=== PATIENT | female | born 1970 | race American Indian/Alaskan Native ===

== ENCOUNTER 2019-10-18 14:12 | Emergency (ER) | payer BC, OTHER ==
--- NOTE | 2019-10-18 15:36 | Emergency Department Report ---
ED Psych HPI - General Chief Complaint: Psych Stated Complaint: SUICIDE ATTEMPT Time Seen by Provider: 10/18/19 15:31 Source: patient Mode of arrival: Stretcher - Related Data Allergies Allergy/AdvReac Type Severity Reaction Status Date / Time No Known Allergies Allergy Unverified 10/18/19 14:41 ED Review of Systems ROS: Stated complaint: SUICIDE ATTEMPT Other details as noted in HPI Comment: All other systems reviewed and negative ED Past Medical Hx - Past Medical History Previous Medical History?: Yes Hx Hypertension: Yes Hx of Cancer: Yes (L breast CA - radiation and chemo 2005) Hx Psychiatric Treatment: Yes (BRYSON, PTSD, Depressive D/O) - Surgical History Additional Surgical History: Lumpectomy of L breast, Kidney stone - Social History Smoking Status: Former Smoker Substance Use Type: Alcohol ED Physical Exam - General Limitations: No Limitations General appearance: alert, in no apparent distress - Head Head exam: Present: atraumatic, normocephalic - Eye Eye exam: Present: normal appearance, PERRL, EOMI Pupils: Present: normal accommodation - ENT ENT exam: Present: normal exam, normal orophraynx, mucous membranes moist, TM's normal bilaterally - Neck Neck exam: Present: normal inspection, full ROM - Respiratory Respiratory exam: Present: normal lung sounds bilaterally. Absent: respiratory distress, wheezes, rales, rhonchi, accessory muscle use, decreased breath sounds - Cardiovascular Cardiovascular Exam: Present: regular rate, normal rhythm. Absent: systolic murmur, diastolic murmur, rubs, gallop - GI/Abdominal GI/Abdominal exam: Present: soft, normal bowel sounds. Absent: distended, tenderness, guarding, hyperactive bowel sounds, hypoactive bowel sounds - Extremities Exam Extremities exam: Present: normal inspection, normal capillary refill - Expanded Upper Extremity Exam Left Elbow exam: Present: laceration (linear laceration envolving the dermis 1.5 cm) Hand Wrist exam: Present: normal inspection, full ROM Vascular: Present: normal capillary refill - Back Exam Back exam: Present: normal inspection. Absent: CVA tenderness (R), CVA tenderness (L) - Neurological Exam Neurological exam: Present: alert, oriented X3 - Psychiatric Psychiatric exam: Present: normal affect, normal mood - Skin Skin exam: Present: warm, dry, intact, normal color. Absent: rash Critical care attestation.: If time is entered above; I have spent that time in minutes in the direct care of this critically ill patient, excluding procedure time. ED Disposition Condition: Stable
[2019-10-18] MEDS ORDERED: LORazepam 2 MG/ML VIAL IM PRN (15:42)
[2019-10-18] MEDS ORDERED: HALOPERIDOL LACTATE 5 MG/1 ML INJ IM PRN (15:42)
--- NOTE | 2019-10-18 15:42 | Event Note ---
Date of service: 10/18/19 Face to Face: The patient is a 49-year-old female, right-hand dominant, up-to-date with tetanus vaccination, presenting with self-inflicted linear laceration/wound to the volar medial aspect of her left distal upper extremity. Finger intrinsics are intact. There are no neurovascular deficits. Wound to be repaired by physician administrative assistant receptionist. Psychiatric consultation is requested. Screening laboratory studies reviewed and appreciated. Bacitracin to wound, otherwise, antibiotics not indicated. At this point in time, patient does not appear to have an immediate medical contraindication to psychiatric admission, evaluation, consultation and placement. Vital Signs 10/18/19 15:43 Temperature 98.2 F Pulse Rate 116 H Blood Pressure 113/75 [Left] O2 Sat by Pulse 96 Oximetry Lab Results 10/18/19 10/18/19 10/18/19 Range/Units 15:43 15:44 15:44 WBC 10.6 (4.5-11.0) K/mm3 RBC 4.45 (3.65-5.03) M/mm3 Hgb 13.4 (10.1-14.3) gm/dl Hct 40.3 (30.3-42.9) % MCV 91 (79-97) fl MCH 30 (28-32) pg MCHC 33 (30-34) % RDW 14.1 (13.2-15.2) % Plt Count 336 (140-440) K/mm3 Lymph % (Auto) 16.9 (13.4-35.0) % [place] % (Auto) 6.7 (0.0-7.3) % Eos % (Auto) 1.8 (0.0-4.3) % Baso % (Auto) 1.0 (0.0-1.8) % Lymph # 1.8 (1.2-5.4) K/mm3 [place] # 0.7 (0.0-0.8) K/mm3 Eos # 0.2 (0.0-0.4) K/mm3 Baso # 0.1 (0.0-0.1) K/mm3 Seg Neutrophils % 73.6 H (40.0-70.0) % Seg Neutrophils # 7.8 H (1.8-7.7) K/mm3 Sodium 136 L (137-145) mmol/L Potassium 4.2 (3.6-5.0) mmol/L Chloride 103.1 (98-107) mmol/L Carbon Dioxide 18 L (22-30) mmol/L Anion Gap 19 mmol/L BUN 12 (7-17) mg/dL Creatinine 1.0 (0.7-1.2) mg/dL Estimated GFR > 60 ml/min BUN/Creatinine Ratio 12 % Glucose 113 H (65-100) mg/dL Calcium 10.0 (8.4-10.2) mg/dL Total Bilirubin 0.20 (0.1-1.2) mg/dL AST 24 (5-40) units/L ALT 19 (7-56) units/L Alkaline Phosphatase 77 (35-129) units/L Total Creatine Kinase (30-135) units/L Total Protein 7.8 (6.3-8.2) g/dL Albumin 4.0 (3.9-5) g/dL Albumin/Globulin Ratio 1.1 % HCG, Quant (0-4) mIU/mL Salicylates < 0.3 L (2.8-20.0) mg/dL Acetaminophen (10.0-30.0) ug/mL Plasma/Serum Alcohol (0-0.07) % 10/18/19 10/18/19 10/18/19 Range/Units 15:44 15:44 15:44 WBC (4.5-11.0) K/mm3 RBC (3.65-5.03) M/mm3 Hgb (10.1-14.3) gm/dl Hct (30.3-42.9) % MCV (79-97) fl MCH (28-32) pg MCHC (30-34) % RDW (13.2-15.2) % Plt Count (140-440) K/mm3 Lymph % (Auto) (13.4-35.0) % [place] % (Auto) (0.0-7.3) % Eos % (Auto) (0.0-4.3) % Baso % (Auto) (0.0-1.8) % Lymph # (1.2-5.4) K/mm3 [place] # (0.0-0.8) K/mm3 Eos # (0.0-0.4) K/mm3 Baso # (0.0-0.1) K/mm3 Seg Neutrophils % (40.0-70.0) % Seg Neutrophils # (1.8-7.7) K/mm3 Sodium (137-145) mmol/L Potassium (3.6-5.0) mmol/L Chloride (98-107) mmol/L Carbon Dioxide (22-30) mmol/L Anion Gap mmol/L BUN (7-17) mg/dL Creatinine (0.7-1.2) mg/dL Estimated GFR ml/min BUN/Creatinine Ratio % Glucose (65-100) mg/dL Calcium (8.4-10.2) mg/dL Total Bilirubin (0.1-1.2) mg/dL AST (5-40) units/L ALT (7-56) units/L Alkaline Phosphatase (35-129) units/L Total Creatine Kinase 117 (30-135) units/L Total Protein (6.3-8.2) g/dL Albumin (3.9-5) g/dL Albumin/Globulin Ratio % HCG, Quant (0-4) mIU/mL Salicylates (2.8-20.0) mg/dL Acetaminophen < 5.0 L (10.0-30.0) ug/mL Plasma/Serum Alcohol < 0.01 (0-0.07) % 10/18/19 Range/Units 15:44 WBC (4.5-11.0) K/mm3 RBC (3.65-5.03) M/mm3 Hgb (10.1-14.3) gm/dl Hct (30.3-42.9) % MCV (79-97) fl MCH (28-32) pg MCHC (30-34) % RDW (13.2-15.2) % Plt Count (140-440) K/mm3 Lymph % (Auto) (13.4-35.0) % [place] % (Auto) (0.0-7.3) % Eos % (Auto) (0.0-4.3) % Baso % (Auto) (0.0-1.8) % Lymph # (1.2-5.4) K/mm3 [place] # (0.0-0.8) K/mm3 Eos # (0.0-0.4) K/mm3 Baso # (0.0-0.1) K/mm3 Seg Neutrophils % (40.0-70.0) % Seg Neutrophils # (1.8-7.7) K/mm3 Sodium (137-145) mmol/L Potassium (3.6-5.0) mmol/L Chloride (98-107) mmol/L Carbon Dioxide (22-30) mmol/L Anion Gap mmol/L BUN (7-17) mg/dL Creatinine (0.7-1.2) mg/dL Estimated GFR ml/min BUN/Creatinine Ratio % Glucose (65-100) mg/dL Calcium (8.4-10.2) mg/dL Total Bilirubin (0.1-1.2) mg/dL AST (5-40) units/L ALT (7-56) units/L Alkaline Phosphatase (35-129) units/L Total Creatine Kinase (30-135) units/L Total Protein (6.3-8.2) g/dL Albumin (3.9-5) g/dL Albumin/Globulin Ratio % HCG, Quant < 2 (0-4) mIU/mL Salicylates (2.8-20.0) mg/dL Acetaminophen (10.0-30.0) ug/mL Plasma/Serum Alcohol (0-0.07) %
[2019-10-18] MEDS ORDERED: BACITRACIN ZINC OINT 28.4 GM TP SCH (16:00)
[2019-10-18 16:02] LABS: Basophils # (Auto) 0.1 K/mm3 (0.0-0.1); Eosinophils # (Auto) 0.2 K/mm3 (0.0-0.4); Eosinophils % (Auto) 1.8 % (0.0-4.3); Hematocrit 40.3 % (30.3-42.9); Hemoglobin 13.4 gm/dl (10.1-14.3); Lymphocytes # (Auto) 1.8 K/mm3 (1.2-5.4); Lymphocytes % (Auto) 16.9 % (13.4-35.0); Mean Corpuscular HGB Conc 33 % (30-34); Mean Corpuscular Volume 91 fl (79-97); Monocytes # (Auto) 0.7 K/mm3 (0.0-0.8); Monocytes % (Auto) 6.7 % (0.0-7.3); Platelet Count 336 K/mm3 (140-440); Red Blood Count 4.45 M/mm3 (3.65-5.03); Red Cell Distribution Width 14.1 % (13.2-15.2)
[2019-10-18 16:27] LABS: Alanine Aminotransferase 19 units/L (7-56); BUN/Creatinine Ratio 12; Blood Urea Nitrogen 12 mg/dL (7-17); Hemolysis Index 18
[2019-10-18 19:02] LABS: Bilirubin,Urine NEG (Negative); Blood,Urine NEG (Negative); Color,Urine Yellow (Yellow); Mucus,Urine FEW /HPF; Protein,Urine <15 mg/dL mg/dL (Negative); Urobilinogen,Urine < 2.0 mg/dL (<2.0)
[2019-10-18 19:11] LABS: Amphetamine Screen,Urine PRESUMPTIVE NEGATIVE; Benzodiazepines Screen,Urine PRESUMPTIVE NEGATIVE; Cannabinoid Screen,Urine PRESUMPTIVE NEGATIVE; Cocaine Screen,Urine PRESUMPTIVE NEGATIVE; Methadone Screen,Urine PRESUMPTIVE NEGATIVE; Opiate Screen,Urine PRESUMPTIVE NEGATIVE
[2019-10-18] MEDS ORDERED: QUEtiapine 100 MG TAB PO ONE (22:58)
[2019-10-19 09:18] VITALS: BP 95/65
== END 2019-10-19 11:45 ==
LOC: ED 14:12 → EEVIPCON 14:12 → ED 10-19 11:45
DX: T14.91XA Suicide attempt, initial encounter (principal); I10 Essential (primary) hypertension; F43.10 Post-traumatic stress disorder, unspecified; F32.9 Major depressive disorder, single episode, unspecified; Z98.890 Other specified postprocedural states; Z87.891 Personal history of nicotine dependence
CPT/HCPCS: 36415; 80053; 80178; 80307; 80320; 81001; 82550; 84702; 85025; G0480

== ENCOUNTER 2020-08-01 15:13 | Emergency (ER) | payer BC ==
[2020-08-01 15:32] VITALS: BP 119/87
--- NOTE | 2020-08-01 15:54 | Event Note ---
ED Screening Note ED Screening Note: SOB that began 2 days ago states she has a hx of asthma states she was out of her albuterol inhaler, states she just got it this morning dry cough no fever no n/v/d no CP PMHx trigeminal neuralgia, arthritis no allergies to meds non smoker LNMP: 07/01/2020 This initial assessment/diagnostic orders/clinical plan/treatment(s) is/are subject to change based on patients health status, clinical progression and re- assessment by fellow clinical providers in the ED. Further treatment and workup at subsequent clinical providers discretion. Patient/guardian urged not to elope from the ED as their condition may be serious if not clinically assessed and managed. Initial orders include: cxr, labs
[2020-08-01 16:47] LABS: Basophils # (Auto) 0.1 K/mm3 (0.0-0.1); Basophils % (Auto) 0.9 % (0.0-1.8); Eosinophils # (Auto) 0.2 K/mm3 (0.0-0.4); Eosinophils % (Auto) 1.3 % (0.0-4.3); Hemoglobin 11.4 gm/dl (10.1-14.3); Lymphocytes # (Auto) 2.3 K/mm3 (1.2-5.4); Mean Corpuscular HGB Conc 34 % (30-34); Mean Corpuscular Volume 86 fl (79-97); Monocytes # (Auto) 1.1 K/mm3 (0.0-0.8); Monocytes % (Auto) 9.1 % (0.0-7.3); Platelet Count 352 K/mm3 (140-440); Red Blood Count 3.97 M/mm3 (3.65-5.03); Red Cell Distribution Width 15.8 % (13.2-15.2)
[2020-08-01 16:51] LABS: Alanine Aminotransferase 31 units/L (7-56); Albumin 3.7 g/dL (3.9-5); BUN/Creatinine Ratio 10; Blood Urea Nitrogen 8 mg/dL (7-17); Calcium 10.1 mg/dL (8.4-10.2); Hemolysis Index 28
--- NOTE | 2020-08-01 16:51 | Emergency Department Report ---
ED General Adult HPI - General Chief complaint: Dyspnea/Respdistress Stated complaint: CHEST PAIN Time Seen by Provider: 08/01/20 15:53 Source: patient Mode of arrival: Wheelchair Limitations: No Limitations - History of Present Illness Initial comments: 50-year-old -[place] female patient presents from [place] for shortness of breath x4 days. Patient reports she was admitted to [place] for suicidal attempt by cutting her wrist. She reports since being there, she has not had her albuterol inhaler and feels like she is experiencing an asthma attack. She states that the shortness of breath is worse when she has her mask on and denies any cough, hemoptysis, fever/chills/sweats, chest pain, leg pain/swelling, history of DVT/PE/cancer, recent long travel/surgeries, or hormone use. Patient reports that she has also been intermittently dizzy and feels like the room is spinning at times with some nausea. She denies prior history of vertigo, headache, vision changes, numbness/tingling/weakness in her limbs, confusion, or difficulty with speech/ambulation. -: Gradual Severity scale (0 -10): 0 - Related Data Home Medications Medication Instructions Recorded Confirmed Last Taken Baclofen [Lioresal] 0.5 tab PO Q8H PRN 10/18/19 10/20/19 Unknown Gabapentin 1 cap PO TID 10/18/19 10/20/19 10/18/19 Indomethacin [Indocin] 1 cap PO TID 10/18/19 10/20/19 10/18/19 Losartan [Cozaar] 1 tab PO QAM 10/18/19 10/20/19 10/18/19 amLODIPine 1 tab PO QAM 10/18/19 10/20/19 10/18/19 hydroCHLOROthiazide [HCTZ] 1 tab PO QAM 10/18/19 10/20/19 10/18/19 propranoloL [Inderal] 1 tab PO BID 10/18/19 10/20/19 10/18/19 Previous Rx's Medication Instructions Recorded Last Taken Type Famotidine [Pepcid] 20 mg PO BID #60 tablet 10/27/19 Unknown Rx [place] Carbonate 1 cap PO QAM #30 10/27/19 Unknown Rx [place] Carbonate [Eskalith] 300 mg PO DAILY #30 capsule 10/27/19 Unknown Rx [place] Carbonate [Eskalith] 600 mg PO QHS #30 capsule 10/27/19 Unknown Rx QUEtiapine [SEROquel] 100 mg PO DAILY #30 tablet 10/27/19 Unknown Rx QUEtiapine [SEROquel] 200 mg PO QHS #30 tablet 10/27/19 Unknown Rx Topiramate [Topamax] 50 mg PO BID #60 tablet 10/27/19 Unknown Rx Venlafaxine [Effexor] 3 tab PO DAILY #90 10/27/19 Unknown Rx Albuterol Mdi (or & Nicu Only) 2 puff IH Q4H PRN #8.5 gram 08/01/20 Unknown Rx [ProAir HFA Inhaler] Prednisone [predniSONE 5 mg (6-Day 5 mg PO .TAPER #1 tab.ds.pk 08/01/20 Unknown Rx Pack, 21 Tabs)] Allergies Allergy/AdvReac Type Severity Reaction Status Date / Time No Known Allergies Allergy Verified 08/01/20 15:26 ED Review of Systems ROS: Stated complaint: CHEST PAIN Other details as noted in HPI Constitutional: denies: chills, diaphoresis, fever, malaise, weakness Eyes: denies: vision change ENT: denies: throat pain Respiratory: shortness of breath. denies: cough Cardiovascular: denies: chest pain, palpitations, edema, syncope Endocrine: denies: excessive sweating Gastrointestinal: denies: abdominal pain, nausea, vomiting, diarrhea Skin: denies: rash, lesions Neurological: denies: headache, numbness, paresthesias, confusion, abnormal gait Hematological/Lymphatic: denies: easy bleeding ED Past Medical Hx - Past Medical History Hx Hypertension: Yes Hx Congestive Heart Failure: No Hx Diabetes: No Hx Renal Disease: No Hx Arthritis: Yes (Knees) Hx Seizures: No Hx Psychiatric Treatment: Yes (BRYSON, PTSD, Depressive D/O) Hx Asthma: No Hx COPD: No Hx Dementia: No Additional medical history: Trigeminal Neuralgia - Surgical History Hx Cholecystectomy: No Hx Appendectomy: No Additional Surgical History: Lumpectomy of L breast, Kidney stone - Social History Smoking Status: Never Smoker - Medications Home Medications: Home Medications Medication Instructions Recorded Confirmed Last Taken Type Baclofen [Lioresal] 0.5 tab PO Q8H PRN 10/18/19 10/20/19 Unknown History Gabapentin 1 cap PO TID 10/18/19 10/20/19 10/18/19 History Indomethacin [Indocin] 1 cap PO TID 10/18/19 10/20/19 10/18/19 History Losartan [Cozaar] 1 tab PO QAM 10/18/19 10/20/19 10/18/19 History amLODIPine 1 tab PO QAM 10/18/19 10/20/19 10/18/19 History hydroCHLOROthiazide [HCTZ] 1 tab PO QAM 10/18/19 10/20/19 10/18/19 History propranoloL [Inderal] 1 tab PO BID 10/18/19 10/20/19 10/18/19 History Famotidine [Pepcid] 20 mg PO BID #60 tablet 10/27/19 Unknown Rx [place] Carbonate 1 cap PO QAM #30 10/27/19 Unknown Rx [place] Carbonate [Eskalith] 300 mg PO DAILY #30 capsule 10/27/19 Unknown Rx [place] Carbonate [Eskalith] 600 mg PO QHS #30 capsule 10/27/19 Unknown Rx QUEtiapine [SEROquel] 100 mg PO DAILY #30 tablet 10/27/19 Unknown Rx QUEtiapine [SEROquel] 200 mg PO QHS #30 tablet 10/27/19 Unknown Rx Topiramate [Topamax] 50 mg PO BID #60 tablet 10/27/19 Unknown Rx Venlafaxine [Effexor] 3 tab PO DAILY #90 10/27/19 Unknown Rx Albuterol Mdi (or & Nicu Only) 2 puff IH Q4H PRN #8.5 gram 08/01/20 Unknown Rx [ProAir HFA Inhaler] Prednisone [predniSONE 5 mg (6-Day 5 mg PO .TAPER #1 tab.ds.pk 08/01/20 Unknown Rx Pack, 21 Tabs)] ED Physical Exam - General Limitations: No Limitations General appearance: alert, in no apparent distress, obese - Head Head exam: Present: atraumatic, normocephalic - Eye Eye exam: Present: normal appearance. Absent: scleral icterus - ENT ENT exam: Present: mucous membranes moist - Neck Neck exam: Present: normal inspection, full ROM - Respiratory Respiratory exam: Present: normal lung sounds bilaterally, rhonchi. Absent: respiratory distress, wheezes, rales - Cardiovascular Cardiovascular Exam: Present: normal rhythm, tachycardia (Mild with a heart rate of 106) - GI/Abdominal GI/Abdominal exam: Present: soft. Absent: tenderness - Extremities Exam Extremities exam: Present: full ROM. Absent: calf tenderness (No tenderness to palpation or swelling of the legs noted bilaterally) - Back Exam Back exam: Present: normal inspection - Neurological Exam Neurological exam: Present: alert, oriented X3 - Psychiatric Psychiatric exam: Present: normal affect, normal mood - Skin Skin exam: Present: warm, dry, intact, normal color. Absent: rash, cyanosis, diaphoretic ED Course Vital Signs 08/01/20 15:31 Temperature 98.3 F Pulse Rate 107 H Respiratory 18 Rate Blood Pressure 119/87 [Right] O2 Sat by Pulse 99 Oximetry ED Medical Decision Making - Lab Data Result diagrams: 08/01/20 16:15 08/01/20 16:15 Lab Results 08/01/20 08/01/20 08/01/20 Range/Units 16:15 16:15 16:15 WBC 11.8 H (4.5-11.0) K/mm3 RBC 3.97 (3.65-5.03) M/mm3 Hgb 11.4 (10.1-14.3) gm/dl Hct 34.0 (30.3-42.9) % MCV 86 (79-97) fl MCH 29 (28-32) pg MCHC 34 (30-34) % RDW 15.8 H (13.2-15.2) % Plt Count 352 (140-440) K/mm3 Lymph % (Auto) 19.0 (13.4-35.0) % [place] % (Auto) 9.1 H (0.0-7.3) % Eos % (Auto) 1.3 (0.0-4.3) % Baso % (Auto) 0.9 (0.0-1.8) % Lymph # (Auto) 2.3 (1.2-5.4) K/mm3 [place] # (Auto) 1.1 H (0.0-0.8) K/mm3 Eos # (Auto) 0.2 (0.0-0.4) K/mm3 Baso # (Auto) 0.1 (0.0-0.1) K/mm3 Seg Neutrophils % 69.7 (40.0-70.0) % Seg Neutrophils # 8.3 H (1.8-7.7) K/mm3 Sodium 132 L (137-145) mmol/L Potassium 3.2 L (3.6-5.0) mmol/L Chloride 98.8 (98-107) mmol/L Carbon Dioxide 23 (22-30) mmol/L Anion Gap 13 mmol/L BUN 8 (7-17) mg/dL Creatinine 0.8 (0.6-1.2) mg/dL Estimated GFR > 60 ml/min BUN/Creatinine Ratio 10 % Glucose 108 H (65-100) mg/dL Calcium 10.1 (8.4-10.2) mg/dL Total Bilirubin 0.20 (0.1-1.2) mg/dL AST 27 (5-40) units/L ALT 31 (7-56) units/L Alkaline Phosphatase 84 (35-129) units/L Total Protein 7.2 (6.3-8.2) g/dL Albumin 3.7 L (3.9-5) g/dL Albumin/Globulin Ratio 1.1 % HCG, Qual Negative (Negative) - EKG Data EKG shows normal: sinus rhythm Rate: tachycardia (106 bpm) - Radiology Data Radiology results: report reviewed CHEST 2 VIEWS INDICATION / CLINICAL INFORMATION: SOB. FINDINGS: SUPPORT DEVICES: None. HEART / MEDIASTINUM: No significant abnormality. LUNGS / PLEURA: No significant pulmonary or pleural abnormality. No pneumothorax. ADDITIONAL FINDINGS: No significant additional findings. IMPRESSION: 1. No acute findings. - Medical Decision Making 50-year-old -[place] female patient presents from [place] for shortness of breath x4 days. Patient reports she was admitted to [place] for suicidal attempt by cutting her wrist. She reports since being there, she has not had her albuterol inhaler and feels like she is experiencing an asthma attack. She states that the shortness of breath is worse when she has her mask on and denies any cough, hemoptysis, fever/chills/sweats, chest pain, leg pain/swelling, history of DVT/PE/cancer, recent long travel/surgeries, or hormone use. Patient reports that she has also been intermittently dizzy and feels like the room is spinning at times with some nausea. She denies prior history of vertigo, headache, vision changes, numbness/tingling/weakness in her limbs, confusion, or difficulty with speech/ambulation. Patient states shortness of breath has resolved after DuoNeb treatment. Dizz iness also improved with meclizine. Orthostats are normal. No significant abnormalities are noted on chest x-ray or labs. Patient is well-appearing, her vitals are normal, she is stable for discharge home. Strict return precautions were discussed in detail with patient who verbalized understanding. Patient to follow-up with primary care in 3 to 5 days Critical care attestation.: If time is entered above; I have spent that time in minutes in the direct care of this critically ill patient, excluding procedure time. ED Disposition Clinical Impression: Vertigo Asthma exacerbation Qualifiers: Asthma severity: mild Asthma persistence: intermittent Qualified Code(s): J45.21 - Mild intermittent asthma with (acute) exacerbation Disposition: TO HOME OR SELFCARE Is pt being admited?: No Condition: Stable Instructions: Asthma, Adult, Vertigo, [id number] Prescriptions: Prednisone [predniSONE 5 mg (6-Day Pack, 21 Tabs)] 5 mg PO .TAPER #1 tab.ds.pk Albuterol Mdi (or & Nicu Only) [ProAir HFA Inhaler] 2 puff IH Q4H PRN #8.5 gram PRN Reason: Shortness Of Breath Referrals: [facility] [Provider Group] - 3-5 Days
[2020-08-01] MEDS ORDERED: IPRATROPIUM/ALBUTEROL SULFATE 3 ML AMPUL.NEB IH ONE (17:04)
[2020-08-01] MEDS ORDERED: ONDANSETRON 4 MG ODT TAB PO ONE (17:05)
[2020-08-01] MEDS ORDERED: MECLIZINE 25 MG TAB PO ONE (17:05)
[2020-08-01] MEDS ORDERED: POTASSIUM CHLORIDE ER 20 MEQ TAB PO ONE (17:41)
--- NOTE | 2020-08-01 17:58 | XRay Report ---
CHEST 2 VIEWS INDICATION / CLINICAL INFORMATION: SOB. FINDINGS: SUPPORT DEVICES: None. HEART / MEDIASTINUM: No significant abnormality. LUNGS / PLEURA: No significant pulmonary or pleural abnormality. No pneumothorax. ADDITIONAL FINDINGS: No significant additional findings. IMPRESSION: 1. No acute findings. Signer Name: Raulito Lind MD Signed: 08/01/2020 5:53 PM Workstation Name: [id number]
== END 2020-08-01 18:28 | disposition home or self-care (01) ==
LOC: ED 15:13
DX: J45.901 Unspecified asthma with (acute) exacerbation (principal); R42 Dizziness and giddiness; I10 Essential (primary) hypertension; M19.91 Primary osteoarthritis, unspecified site; Z98.890 Other specified postprocedural states; Z79.899 Other long term (current) drug therapy
CPT/HCPCS: 36415; 71046; 80053; 84703; 85025; 93005; 94640; Q0162